=== PATIENT | female | born 1950 | race Caucasian/White ===

== ENCOUNTER → 2023-10-02 15:54 | Outpatient (REF) | payer OTHER, SELFPAY | LOC: RAD 15:54 | PROVIDERS: ATTENDING PHYSICIAN Physician Assistant; FAMILY PHYSICIAN Internal Medicine | DX: R42 Dizziness and giddiness (principal); R26.89 Other abnormalities of gait and mobility; F41.9 Anxiety disorder, unspecified; F10.90 Alcohol use, unspecified, uncomplicated; R41.3 Other amnesia; Z13.220 Encounter for screening for lipoid disorders | CPT/HCPCS: 70450 ==

== ENCOUNTER 2024-03-01 16:23 | Emergency (ER) | payer SELFPAY ==
[2024-03-01 16:27] VITALS: BP 218/111
[2024-03-01 16:44] VITALS: BP 179/81
[2024-03-01 16:53] VITALS: BMI 22.0
[2024-03-01 16:55] LABS: % Basophils 1.3 % (0-2); % Immature Granulocytes 0.5 % (0-0.5); % Lymphocytes 15.5 % (20.5-51.1); % Monocytes 9.8 % (1.7-9.3); % Neutrophils 72.9 % (42.2-75.2); Absolute Basophils 0.1 10^3/uL (0-0.2); Absolute Monocytes 0.6 10^3/uL (0.1-0.6); Absolute Neutrophils 4.5 10^3/uL (1.4-6.5); Hemoglobin 13.7 g/dL (12.0-16.0); Mean Corp Hgb Conc. 36.1 g/dL (33.0-37.0); Mean Corpuscular Hgb 33.6 pg (27.0-31.0); Mean Corpuscular Volume 93.1 fL (81.0-99.0); Mean Platelet Volume 9.5 fL (7.4-10.4); Nucleated Red Blood Cells % 0 %; Platelet Count 222 10^3/uL (130-400); Red Blood Cell Count 4.08 10^6/uL (4.20-5.40); Red Cell Dist. Width 12.2 % (11.5-14.5); White Blood Cell Count 6.2 10^3/uL (4.8-10.8)
[2024-03-01 17:09] LABS: ALT (SGPT) 38 U/L (0-35); AST (SGOT) 51 U/L (14-36); Albumin 5.2 g/dl (3.5-5.0); Alcohol None Detected; Alkaline Phosphatase 82 U/L (38-126); Blood Urea Nitrogen 13 mg/dl (7-17); Calcium 9.8 mg/dl (8.4-10.2); Carbon Dioxide 19 mmol/L (22-30); Chloride 105 mmol/L (98-107); Estimated Creatinine Clearance 43 ml/min; Glucose 128 mg/dl (70-99); Potassium 4.7 mmol/L (3.5-5.1); Sodium 136 mmol/L (135-145); Total Bilirubin 0.7 mg/dl (0.2-1.3); Total Protein 8.1 g/dl (6.3-8.2); eGFR 59.49
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
== END 2024-03-01 19:08 | disposition home or self-care (01) ==
LOC: EMR 16:23
PROVIDERS: EMERGENCY PHYSICIAN Emergency Medicine; FAMILY PHYSICIAN Physician Assistant
DX: R41.3 Other amnesia (principal); V89.2XXA Person injured in unspecified motor-vehicle accident, traffic, initial encounter; Y92.410 Unspecified street and highway as the place of occurrence of the external cause; I38 Endocarditis, valve unspecified; K58.9 Irritable bowel syndrome, unspecified; Z60.2 Problems related to living alone; Z86.79 Personal history of other diseases of the circulatory system
CPT/HCPCS: 99284; 70450; 80053; 82077; 85025

== ENCOUNTER → 2024-05-14 13:48 | Outpatient (REF) | payer MEDICARE, SELFPAY | LOC: PAVMRI 13:48 | PROVIDERS: ATTENDING PHYSICIAN Psychiatry & Neurology Neurology; FAMILY PHYSICIAN Physician Assistant | DX: R41.89 Other symptoms and signs involving cognitive functions and awareness (principal); F10.20 Alcohol dependence, uncomplicated | CPT/HCPCS: 70553; A9575 ==

== ENCOUNTER 2024-05-19 17:23 | Inpatient (IN) | payer MEDICARE, SELFPAY ==
[2024-05-18] VITALS (8 sets, daily range): BP systolic 127–156; BP diastolic 66–83; BMI 19.4
[2024-05-18 16:44] LABS: % Basophils 1.3 % (0-2); % Eosinophils 0.6 % (0-6); % Immature Granulocytes 0.4 % (0-0.5); % Lymphocytes 37.2 % (20.5-51.1); % Monocytes 8.8 % (1.7-9.3); % Neutrophils 51.7 % (42.2-75.2); Absolute Basophils 0.1 10^3/uL (0-0.2); Absolute Lymphocytes 1.7 10^3/uL (1.2-3.4); Absolute Monocytes 0.4 10^3/uL (0.1-0.6); Absolute Neutrophils 2.4 10^3/uL (1.4-6.5); Hematocrit 40.1 % (37.0-47.0); Hemoglobin 14.1 g/dL (12.0-16.0); Mean Corp Hgb Conc. 35.2 g/dL (33.0-37.0); Mean Corpuscular Hgb 34.8 pg (27.0-31.0); Mean Platelet Volume 10.1 fL (7.4-10.4); Nucleated Red Blood Cells % 0 %; Platelet Count 255 10^3/uL (130-400); Red Blood Cell Count 4.05 10^6/uL (4.20-5.40); Red Cell Dist. Width 11.8 % (11.5-14.5); White Blood Cell Count 4.7 10^3/uL (4.8-10.8)
--- NOTE | 2024-05-18 16:52 | ED.GENMED ---
History of Present Illness
General
Chief Complaint: Change in Mental Status
Time Seen by Provider: 05/18/24 16:38
History of Present Illness
History of Present Illness:
73-year-old female with history of hyperlipidemia presents to the emergency department for evaluation of abnormal MRI results. According to patient's daughter she has been having progressive cough changes for the past several months, was sent for
outpatient MRI by her primary care physician and the findings from 4 days ago showed a acute to subacute hemorrhagic infarct in the right parietal lobe. She was directed to the ED by her primary care physician. Per daughter there have been no
acute changes in the past 4 days. No fevers or chills. She denies any chest pain, shortness of breath, nausea, vomiting. No history of prior stroke but did have a subdural hemorrhage due to a fall
Past History
Past History
ED Past Medical History: Valvular disease and Other (IBS, OCs)
ED Past Surgical History: Gynecological
Social History
Tobacco: Non-smoker
Alcohol: Daily
Personal:
Living: with family
Employment: Retired
Review of Systems
Review of Systems
Allergies reviewed?: Yes
All Other Systems: ROS reviewed and negative except as documented in HPI and ROS
Phy Exam
Physical Exam
Physical Exam:
GEN: Well appearing, NAD, WDWN
HEENT: Oral mucosa moist, no scleral icterus, no nasal congestion
Cardiac: Regular rate and rhythm,
Lung: No respiratory distress, no tachypnea
MSK: No gross deformity or injuries
Skin: Good color, no pallor or jaundice, no rashes
Neuro: Alert, oriented only to self, follows commands; CN II-XII grossly intact. BUE strength 5/5 in all patricio, sensation intact and symmetric. BLE strength 5/5 in all patricio, sensation intact and symmetric
Psych: Calm, cooperative
Course
Orders/Labs/Results
Orders:
Orders
05/18/24 16:32
Complete Blood Count/With Diff Urgent
Comprehensive Metabolic Panel Urgent
PT/INR [Prothrombin Time] Urgent
05/18/24 16:51
CT Head W/o Iv Contrast Urgent
Comment:
Reason For Exam: mental status change, recent CVA
05/18/24 16:52
Electrocardiogram (*1) Urgent
Reason for Study: TIA/Stroke
EKG- Treatment ONCE
Urinalysis Reflex To Culture Urgent
05/18/24 20:30
Aspirin Chewable [Low Strength Aspirin] 81 mg PO NOW STA
Clopidogrel Bisulfate [Plavix] 75 mg PO NOW STA
05/18/24 22:51
Admit/Transfer Patient As Directed
Co-Sign Provider:
Level of Care: Observation services
Assign to:: Telemetry
Physician / Group: neo
Diagnosis: cva
Reason for Telemetry: CVA/TIA
Date to Stop Telemetry: 05/21/24
Time to Stop Telemetry: 11:00
Code Status As Directed
Resuscitation Status: Full Code
PRN Pain Medication Management As Directed
May give lesser potent ordered pain med per pt: Yes
preference::
Protocol:: Medication orders for pain may be administered in a
manner that supports deferring to patient preference
when the pt is:
- Requesting an ordered lesser potent pain medication.
Least to most potent pain medications are defined
as: acetaminophen < NSAID < tramadol < opioids
(morphine, oxycodone, hydromorphone).
- Requesting a lesser dose of the same medication IF
ORDERED.
- Requesting a less intrusive route of administration
if both routes are prescribed by the provider (PO <
IV).
05/21/24 11:00
DC Protocol for Telemetry ONCE
Abnormal Lab Results
05/18/24
16:32
WBC 4.7 L 10^3/uL
(4.8-10.8)
RBC 4.05 L 10^6/uL
(4.20-5.40)
MCH 34.8 H pg
(27.0-31.0)
Sodium 147 H mmol/L
(135-145)
Chloride 108 H mmol/L
(98-107)
Glucose 115 H mg/dl
(70-99)
Albumin 5.2 H g/dl
(3.5-5.0)
05/18/24 16:32
05/18/24 16:32
Vital Signs
Initial and Last Documented VS:
Initial Vital Signs
Temp Pulse Resp BP Pulse Ox
98.2 F 86 16 147/83 98
05/18/24 16:21 05/18/24 16:21 05/18/24 16:21 05/18/24 16:21 05/18/24 16:21
Last Documented Vital Signs
Temp Pulse Resp BP Pulse Ox
98.5 F 82 14 142/76 100
05/18/24 21:52 05/18/24 20:45 05/18/24 20:45 05/18/24 20:00 05/18/24 16:59
MDM/Problems Addressed
MDM/Problems Addressed:
I discussed the MRI findings with neurology on-call who request that we initiate dual antiplatelets and admit for further stroke workup as the concern is for potential embolic CVA. Initially we had planned to admit however the patient abruptly
decided against this and requested to go home. I had a lengthy discussion with the patient about further outpatient workup that is necessary and plan for discharge with prescription for dual antiplatelets however after this discussion the patient
then again changed her mind and opted for admission.
*Critical Care Note
Total Time (30-74mins, 75-104mins- exclusive of procedures): Not Applicable
ED Attending Note
-
Portions of this chart may have been created with voice recognition software.� Occasional wrong word or��sound alike� substitutions may have occurred due to the inherent limitations of voice recognition software.
Discharge Plan
Departure
Patient Disposition: Admit
Date of Disposition: 05/18/24
Time of Disposition: 20:33
Presentation/result/management discussed w/ accepting MD/DO: Hospitalist
Patient with high blood pressure during this ER visit?: No
Discharge Problem:
Acute cerebrovascular accident (CVA)
Instructions: Stroke
Prescriptions:
New
clopidogrel [Plavix] 75 mg tablet
75 mg PO DAILY Qty: 20 0RF
No Action
metoprolol succinate 25 mg Tablet Extended Release 24 Hr
25 mg PO DAILY
escitalopram oxalate 5 mg Tablet
5 mg PO DAILY
rosuvastatin tablet
1 tab PO DAILY
Referrals:
Stefanie Laguna PA-C [Family Provider] -
Mary Ellen Villarreal DO [Active] -
Activity Restrictions/Additional Instructions:
You were recommended for admission by our neurologist, however you have declined and requested to be discharged. We are concerned your stroke is 'embolic' meaning a clot that was sent from somewhere else in the body. You should obtain an
echocardiogram (ultrasound of the heart); this can be ordered by your primary doctor or by your neurologist
Call your neurologist office tomorrow for further follow up instructions pertaining to your stroke, as well as the remainder of the findings on your MRI. These findings may reflect chronic brain changes.
Interventions
Interventions:
*Risk Screen - Suicide Last Done: 05/18/24 16:21
*General Assessment Last Done: 05/18/24 16:51
*Neglect/Abuse Screening Last Done: 05/18/24 16:21
ED- Neurological Assessment Last Done: 05/18/24 21:48
ED Swallowing Screen Last Done: 05/18/24 20:54
Discharge Date and Time
Print Language: DIVEHI
[2024-05-18 16:54] LABS: INR 0.98; PT 12.8 Sec (11.4-14.6)
[2024-05-18 16:59] LABS: ALT (SGPT) 29 U/L (0-35); AST (SGOT) 34 U/L (14-36); Albumin 5.2 g/dl (3.5-5.0); Alkaline Phosphatase 63 U/L (38-126); Blood Urea Nitrogen 11 mg/dl (7-17); Calcium 10.1 mg/dl (8.4-10.2); Carbon Dioxide 25 mmol/L (22-30); Chloride 108 mmol/L (98-107); Estimated Creatinine Clearance 40 ml/min; Glucose 115 mg/dl (70-99); Potassium 4.9 mmol/L (3.5-5.1); Sodium 147 mmol/L (135-145); Total Bilirubin 0.2 mg/dl (0.2-1.3); Total Protein 7.7 g/dl (6.3-8.2); eGFR 59.49
[2024-05-18] MEDS: PLAVIX 75 MG PO (20:55)
[2024-05-18] MEDS: LOW STRENGTH ASPIRIN 81 MG PO (20:55)
--- NOTE | 2024-05-18 22:56 | HPS.HSE ---
Family Physician
-
Family Physician: Stefanie Laguna
Chief Complaint
-
abnormal MRI
History of Present Illness
73-year-old female past medical history of cognitive impairment, hypertension, hyperlipidemia, prior subdural hematoma, depression, IBS, presenting with abnormal MRI results. Patient had been having progressive cognitive decline over several years
and saw neurologist who ordered outpatient MRI.
She had outpatient MRI performed by her primary care physician 4 days ago showing acute to subacute hemorrhagic infarct in the right parietal lobe. She was directed to the emergency room.
Patient denies any headache, blurry vision, difficulty speaking or swallowing, any numbness or tingling, focal weakness or balance dysfunction.
Patient is in denial about how much alcohol she drinks. She is not forthcoming about how much she drinks. She denies nausea vomiting or tremors.
Medical History
Past Medical History
Past Medical History: Reports Other (cognitive impairment, hypertension, hyperlipidemia, prior subdural hematoma, depression, IBS)
Past Surgical History: Reports Other (Gynecological)
Social History
Tobacco: Non-smoker
Alcohol: Daily
Drug: None
Family History
Family History: Other (brother with CVA, father with CAD )
Allergies / Home Medications
Allergies reflects when Allergies were last updated in [facility].
Home Medications with original date entered in [facility]
Allergy/Medication List:
Allergies
Allergy/AdvReac Type Severity Reaction Status Date / Time
erythromycin base Allergy 'irritates Verified 05/18/24 16:25
my stomach'
Home Medications
clopidogrel 75 mg tablet (Plavix) 75 mg PO DAILY #20 tabs 05/18/24
escitalopram oxalate 5 mg tablet 5 mg PO DAILY 05/18/24
metoprolol succinate 25 mg tablet,extended release 24 hr 25 mg PO DAILY 05/18/24
rosuvastatin 1 tab PO DAILY 05/18/24
Review of Systems
-
History Source: Patient
A 12 point ROS was completed and negative except as noted: Yes
Constitutional: Reports No Symptoms
EENT: Reports No Symptoms
Respiratory: Reports No Symptoms
Cardiac: Reports No Symptoms
Abdomen/GI: Reports No Symptoms
: Reports No Symptoms
Musculoskeletal: Reports No Symptoms
Skin: Reports No Symptoms
Neurological: Reports No Symptoms
Endocrine: Reports No Symptoms
Hematologic/Lymphatic: Reports No Symptoms
Psych: Reports No Symptoms
Physical Exam
Vital Signs
Vital Signs
Temp Pulse Resp BP Pulse Ox
98.5 F 82 14 142/76 100
05/18/24 21:52 05/18/24 20:45 05/18/24 20:45 05/18/24 20:00 05/18/24 16:59
Physical Exam
General: Well Developed, Well Nourished and No Apparent Distress
HEENT: NormoCephalic, Moist mucous membranes and Atraumatic
Respiratory: Clear
Cardiac: S1/S2 and Regular Rhythm; No Murmur or Rub
GI: Soft, Non Tender, Non Distended and Normal Bowel Sounds; No Organomegaly
Rectal: Deferred by Provider
Musculoskeletal: No Clubbing, No Cyanosis and No Edema
Skin: No Rash
Neuro: Nonfocal/grossly intact
Laboratory Results
-
05/18/24 16:32
05/18/24 16:32
Laboratory Results
PT 12.8 Sec (11.4-14.6) 05/18/24 16:32
INR 0.98 05/18/24 16:32
Total Bilirubin 0.2 mg/dl (0.2-1.3) 05/18/24 16:32
AST 34 U/L (14-36) 05/18/24 16:32
ALT 29 U/L (0-35) 05/18/24 16:32
Alkaline Phosphatase 63 U/L (38-126) 05/18/24 16:32
Data Reviewed
-
Lab Data: Labs Reviewed by me
Old Records: Reviewed
Impression/Plan
-
IMPRESSION:
PLAN:
# Hemorrhagic infarct subacute versus acute of medial postcentral gyrus of right parietal lobe likely secondary to cerebral amyloid angiopathy
-no neurological deficits
-CT head today shows no acute intracranial abnormalities
-MRI shows hemorrhagic infarct focus in the medial postcentral gyrus the right parietal lobe, as well as numerous scattered foci of decreased T2 gradient echo signal likely representing amyloid angiopathy
-Aspirin Plavix given in ER, hold further for now
-Maintain systolic blood pressure under 140 systolic
-Neurology consulted
#Hypernatremia
-Sodium 147
-1/2 Normal Saline at 60 cc/hr
Prior subdural hematoma
History of cognitive impairment
Alcohol use disorder
-No signs of withdrawal currently
-Alcohol withdrawal protocol
Essential hypertension
-Continue metoprolol
Hyperlipidemia
-Continue statin
Depression
-Continue Lexapro
IBS
Full code
DVT prophylaxis�SCDs
Regular diet
[2024-05-19] VITALS (10 sets, daily range): BP systolic 140–160; BP diastolic 71–89; PULSE 79
[2024-05-19] MEDS: 0.45%NACL 1000 IV (01:14)
[2024-05-19 03:26] LABS: Urine Albumin Negative (Neg - Trace); Urine Bilirubin Negative (Negative); Urine Character Clear (Clear); Urine Color Yellow; Urine Glucose Negative (Negative); Urine Ketone Negative (Negative); Urine Leukocyte Trace (Negative); Urine Nitrite Negative (Negative); Urine Occult Blood Negative (Negative); Urine Urobilinogen Negative (Neg - 1+)
[2024-05-19 03:45] LABS: Urine Mucus Few
[2024-05-19 03:47] LABS: Urine Bacteria Few (Negative); Urine Red Blood Cell 0-2 /HPF (0-2)
[2024-05-19 06:03] LABS: % Basophils 1.1 % (0-2); % Eosinophils 0.9 % (0-6); % Immature Granulocytes 0.4 % (0-0.5); % Lymphocytes 19.6 % (20.5-51.1); % Monocytes 12.1 % (1.7-9.3); % Neutrophils 65.9 % (42.2-75.2); Absolute Basophils 0.1 10^3/uL (0-0.2); Absolute Eosinophils 0.1 10^3/uL (0-0.7); Absolute Lymphocytes 1.1 10^3/uL (1.2-3.4); Absolute Monocytes 0.7 10^3/uL (0.1-0.6); Absolute Neutrophils 3.6 10^3/uL (1.4-6.5); Hematocrit 34.5 % (37.0-47.0); Hemoglobin 12.1 g/dL (12.0-16.0); Mean Corp Hgb Conc. 35.1 g/dL (33.0-37.0); Mean Corpuscular Hgb 33.2 pg (27.0-31.0); Mean Corpuscular Volume 94.5 fL (81.0-99.0); Mean Platelet Volume 10.2 fL (7.4-10.4); Nucleated Red Blood Cells % 0 %; Platelet Count 237 10^3/uL (130-400); Red Blood Cell Count 3.65 10^6/uL (4.20-5.40); Red Cell Dist. Width 11.7 % (11.5-14.5); White Blood Cell Count 5.5 10^3/uL (4.8-10.8)
[2024-05-19 06:26] LABS: Blood Urea Nitrogen 18 mg/dl (7-17); Calcium 9.5 mg/dl (8.4-10.2); Carbon Dioxide 24 mmol/L (22-30); Chloride 103 mmol/L (98-107); Estimated Creatinine Clearance 45 ml/min; Glucose 123 mg/dl (70-99); HDL Cholesterol 85 mg/dl; LDL Cholesterol, Calculated 124 mg/dl; Potassium 4.1 mmol/L (3.5-5.1); Sodium 139 mmol/L (135-145); Total Cholesterol 238 mg/dl (50-199); Triglyceride 146 mg/dl (10-149); Very Low Density Lipoprotein 29 mg/dl (0-30); eGFR > 60.00
[2024-05-19] MEDS: TOPROL XL 25 MG PO (08:03)
[2024-05-19] MEDS: FOLVITE 1 MG PO (08:03)
[2024-05-19] MEDS: LEXAPRO 5 MG PO (08:04)
[2024-05-19] MEDS: VITAMIN B1 100 MG PO (08:04)
--- NOTE | 2024-05-19 10:24 | PTOTSP ---
ST Acute Care Evaluations:
Background information:
- Pt lives at home alone in a house with her dog and cat.
- Pt is independent with: driving, grocery shopping, cooking, cleaning, finances, and daily medication management.
- Pt occasionally asks for help for yard work assistance.
- Pt has one daughter who lives fairly close by.
- Pt does not perceive any difficulties in her cognitive function but has noted that her brother and daughter have occasionally made comments in passing about her memory.
Clinical Observations: Pt does not know why she has been admitted to the hospital. Pt now recognizes that she came to the hospital with two mismatched shoes. Pt reports she 'feels a little foggy this morning' and 'I've been in another world.' Pt's
speech was clear and fully intelligible. Pt expressed herself and her thoughts in fully, grammatically correct sentences that were easy to follow. Pt followed directions for evaluation without issue. Pt appropriately asked clarifying questions when
necessary. No apparent visual or auditory deficits notes.
Pt currently presents with speech, receptive language, and expressive language skills that are generally with functional limits. Pt exhibits moderate cognitive linguistic deficits (MOCA = 17/30) in the areas of orientation (i.e., time), attention,
executive functioning, and short term memory. Pt would benefit from skilled cognitive linguistic tx at this time to address these aforementioned deficits.
Pt currently presents with oral, pharyngeal, and esophageal parameters that are WFL for safe PO intake of all solids and liquids. No skilled dysphagia services warranted at this time.
Recommendations:
- Continue with regular solids, thin liquids, meds as tolerated.
- General aspiration precautions.
- No skilled dysphagia services warranted.
- LEAD PROGRAMMER to continue to follow while admitted for cognitive linguistic tx.
- LEAD PROGRAMMER services at time of d/c for continued cognitive linguistic tx at the home health level of care.
- Consider neuropsych evaluation as an OP.
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
--- NOTE | 2024-05-19 12:44 | W.PN.HOSP.TC ---
Today's Communication/Plan
-
CTA head/neck
TTE
PT/OT
Neuro recs
Assessment / Plan
Assessment / Plan
# Hemorrhagic infarct subacute versus acute of medial postcentral gyrus of right parietal lobe likely secondary to cerebral amyloid angiopathy
-no neurological deficits
-CT head shows no acute intracranial abnormalities
-MRI done as OP.
-CTA head and neck ordered
-TTE ordered.
-Aspirin Plavix given in ER, hold further for now
-Maintain systolic blood pressure under 140
-Neurology consulted
#Hypernatremia
-Sodium wnl. resolved. dc IVF.
Prior subdural hematoma
History of cognitive impairment
Alcohol use disorder
-No signs of withdrawal currently
-Alcohol withdrawal protocol
Essential hypertension
-Continue metoprolol
Hyperlipidemia
-Continue statin
Depression
-Continue Lexapro
IBS
Full code
DVT prophylaxis�SCDs
PT/OT ordered
Anticipated Discharge: Within 24 hours
Subjective/Interval History
-
Date of Service: May 19, 2024
Sitting in chair eating breakfast
Denies any numbing tingling or lightheaded and dizziness
Moving all 4 extremities
Objective Data
-
Labs:
Laboratory Results
05/19/24
05:27
WBC 5.5
Hgb 12.1
Hct 34.5 L
Plt Count 237
Sodium 139 D
Potassium 4.1
Chloride 103
Carbon Dioxide 24
BUN 18 H
Creatinine 0.9
Glucose 123 H
Calcium 9.5
Vital Signs:
Vital Signs
Temp Pulse Resp BP Pulse Ox
98.8 F 81 15 160/76 98
05/19/24 11:16 05/19/24 11:16 05/19/24 11:16 05/19/24 11:16 05/19/24 11:16
Physical Exam
-
General: Well Developed and Well Nourished
HEENT: Normocephalic, Atraumatic and Moist Mucous Membranes
Respiratory: Clear to Auscultation; Negative Wheezes or Rhonchi
Cardiac: Regular Rhythm and S1/S2; Negative Murmur
GI: Soft, Nontender, Nondistended and Normal Bowel Sounds
Musculoskeletal: No Clubbing, No Cyanosis and No Edema
Neuro: Awake, Alert, Oriented, AO x 3, No Motor Deficits and Nonfocal/Grossly Intact
Psych: Calm
--- NOTE | 2024-05-19 14:32 | W.PN.ADMCERT ---
Inpatient Certification Note
-
Reason for Hospitalization: cva. concern for emboli and undergoing ongoing work up
Expected length of stay greater than two midnights?: Yes
I certify the patient meets the requirements for IP care: Yes
Post Hospital Care:
Post-hospital care is identified in collaboration with the attending/treatment team as well as the patient�s individual needs.
Post-hospital care determinations will be documented in the Case Management assessment and in subsequent notes.
[2024-05-19 14:34] LABS: TSH Reflex To Free T4 1.16 uIU/ml (0.47-4.68)
[2024-05-19 14:53] LABS: Vitamin B12 294 pg/ml (239-931)
--- NOTE | 2024-05-19 15:15 | SUR.OPER ---
Received pt from ED Holds. Pt awake, alert and oriented x3. Pt very forgetful, asking same questions, confused at surroundings and purpose of being in the hospital, pleasant and easily reoriented. Bed alarm placed for safety. Pt NIH: 1 for decreased
sensation in left face and leg. Primary MD and Neuro made aware. Pt VSS 97% on RA. Low grade temp on admission that normalized. Pt oriented to room, call ayala within reach, plan of care continues.
--- NOTE | 2024-05-19 15:16 | W.PN.UPDATE ---
Update Note
Progress Note Update
Cardiology consulted for an implantable loop recorder (ILR). Will begin evaluation with a 2 week Rhythm Star monitor and pending results patient can be considered for an ILR. Rhythm Star monitor should be placed on day of discharge. Please contact
cardiology on-call for the [facility] when patient is being d/c'd so that monitor can be placed.
[2024-05-19] MEDS: CYANOCOBALAMIN 1000 MCG IM (17:20)
[2024-05-19] MEDS: CRESTOR 20 MG PO (17:20)
--- NOTE | 2024-05-19 17:59 | CM ---
Addendum entered by Olive Crane 05/19/24 18:14:
CM consult placed for [facility]. CM explained what [facility] is and what they offer. Patient declined stating she does have any substance abuse issues. She shared she only has a beer 'every once in a while'.
Original Note:
CM reviewed chart. CM introduced self and role. Patient lives at home with her pets. She has an active PCP (EDA MARIE) and pharmacy ([facility]). She lives in a multi-level home and has 3 steps to enter into the home. She drives. She is independent. She
owns no DME. She is retired. 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 [facility] letter explained by CM and patient signed. Copy given to patient. No +SDOHs.
[2024-05-20] MEDS: TYLENOL 650 MG PO (00:35)
[2024-05-20 03:32] VITALS: BP 160/96
[2024-05-20 07:34] LABS: Glycohemoglobin (HgbA1c) 5.6 % (4.0-5.6)
[2024-05-20 07:45] VITALS: BP 129/80
[2024-05-20] MEDS: TOPROL XL 25 MG PO (08:05)
[2024-05-20] MEDS: LEXAPRO 5 MG PO (08:06)
[2024-05-20] MEDS: FOLVITE 1 MG PO (08:06)
[2024-05-20] MEDS: VITAMIN B1 100 MG PO (08:06)
[2024-05-20] MEDS: ASPIR LOW (ENTERIC COATED) 81 MG PO (08:06)
[2024-05-20] MEDS: PLAVIX 75 MG PO (08:07)
[2024-05-20 08:42] VITALS: BP 129/80
[2024-05-20] MEDS: CYANOCOBALAMIN 1000 MCG IM (10:24)
[2024-05-20 10:27] VITALS: BP 162/75; PULSE 76
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
--- NOTE | 2024-05-20 10:59 | W.PN.HOSP.TC ---
Today's Communication/Plan
-
dc home
Assessment / Plan
Assessment / Plan
# Hemorrhagic infarct subacute versus acute of medial postcentral gyrus of right parietal lobe likely secondary to cerebral amyloid angiopathy
-no neurological deficits
-CT head shows no acute intracranial abnormalities
-MRI done as OP.
-CTA head and neck ordered-no severe occlusion. 5 mm aneurysm off the anterior communicating artery-recs to f/u with neurosurgery.
-TTE noted
-Aspirin Plavix for 21 days total then asa only
-Cards to place alarm security or surveillance monitor.
-Maintain systolic blood pressure under 140
-No events on telemetry noted. a1c 5.6. LDL 124.
-Neurology consulted
#Hypernatremia
-Sodium wnl. resolved. dc IVF.
Prior subdural hematoma
History of cognitive impairment
Alcohol use disorder
-No signs of withdrawal currently
-Alcohol withdrawal protocol
Essential hypertension
-Continue metoprolol
Hyperlipidemia
-Continue statin
Depression
-Continue Lexapro
IBS
Full code
DVT prophylaxis�SCDs
PT/OT -home vn.
More than 30 minutes spent in discharge including
Final examination of the patient
Summarizing hospital stay
Instructions for continuing care to all relevant caregivers
Preparation of discharge records, prescriptions, and referral forms
Total time spent (in minutes): 52
Anticipated Discharge: Today
Subjective/Interval History
-
Date of Service: May 20, 2024
feeling better
no weakness/numbing/tingling sensation. Denies lightheadedness or dizziness
Objective Data
-
Vital Signs:
Vital Signs
Temp Pulse Resp BP Pulse Ox
98.2 F 74 22 129/80 100
05/20/24 07:45 05/20/24 07:45 05/20/24 07:45 05/20/24 07:45 05/20/24 07:45
Physical Exam
-
General: Well Developed and Well Nourished
HEENT: Normocephalic, Atraumatic and Moist Mucous Membranes
Respiratory: Clear to Auscultation; Negative Wheezes or Rhonchi
Cardiac: Regular Rhythm and S1/S2; Negative Murmur
GI: Soft, Nontender, Nondistended and Normal Bowel Sounds
Musculoskeletal: No Clubbing, No Cyanosis and No Edema
Neuro: Awake, Alert, Oriented, AO x 3, No Motor Deficits and Nonfocal/Grossly Intact
Psych: Calm
--- NOTE | 2024-05-20 11:07 | W.DCSUMMARY ---
Discharge Summary
Discharge Data
Date of Admission: 05/19/24
Date of Discharge: 05/20/24
-
Pending Results: No
Hospital Course
73-year-old female past medical history of subdural hematoma, suspected cognitive impairment, alcohol use disorder, hypertension, hyperlipidemia, depression, IBS who is presenting with abnormal MRI. Patient had MRI done as outpatient which showed
acute to subacute hemorrhagic infarct in the right parietal lobe. Patient was eval by neurology. Patient underwent CT angio of the head and neck with 5 mm aneurysm. Patient was recommend to follow-up with neurosurgery. Neurology was concerned
for embolic phenomenon causing stroke and requested monitoring tech. Cardiology consulted and placed monitoring tech on discharge. Patient will take aspirin and Plavix together for 20 days additional on discharge and then take aspirin
indefinitely. Patient was also found to have low vitamin B12 and was started on supplementation. Neurology also recommended starting patient on thiamine. Patient was eval by physical Occupational Therapy. Echocardiogram was performed. No events
were noted on telemetry. Patient discharged home with VN.
Discharge Plan
-
Patient Disposition: Home with Home Care
Discharge Diagnosis/Procedures: CVA
Condition: Fair
Diet: Low Cholesterol
Activity: With assistance and As tolerated
Driving Restrictions: As prior to admission
Other Services: VN
Referrals:
Stefanie Laugna PA-C [Family Provider] - in less than 1 week
Ignacio Wilkins MD [Active] - (f/u for heart monitor )
Chelsea Jennings MD [Active] - in one to two weeks
Haven Elizalde MD [Active] - (5 mm aneurysm off the anterior communicating artery-f/u)
Additional Discharge Medication Instructions: Pt being discharged with 2 week monitoring tech, which will be placed prior to discharge by Dr Wilkins's office.
Prescriptions:
New
clopidogrel [Plavix] 75 mg tablet
75 mg PO DAILY Qty: 20 0RF
aspirin 81 mg Tablet,Delayed Release (Dr/Ec)
81 mg PO DAILY 30 Days Qty: 30 0RF
rosuvastatin 20 mg Tablet
20 mg PO QPM 30 Days Qty: 30 0RF
cyanocobalamin (vitamin B-12) 1,000 mcg capsule
1,000 mcg PO DAILY 30 Days Qty: 30 0RF
thiamine HCl (vitamin B1) 100 mg tablet
100 mg PO DAILY 30 Days Qty: 30 0RF
Continued
metoprolol succinate 25 mg Tablet Extended Release 24 Hr
25 mg PO DAILY
escitalopram oxalate 5 mg Tablet
5 mg PO DAILY
Discontinued
rosuvastatin tablet
1 tab PO DAILY
Discharge Orders:
Discharge Patient (As Directed); Ordered 05/20/24
Ordered By: Allen Arellano
Discharge Date and Time
Print Language: KAZAKH
[2024-05-20 11:16] VITALS: BP 144/78
--- NOTE | 2024-05-20 14:45 | PTCARENOTE ---
Discharge instructions reviewed at length with patient. She is very forgetful so brother at bedside and reviewed with him, things rewritten for patient. Brother reassured that he will organize pts meds in pill box for her. Went over heart monitor
instructions, wrote things out for patient.
--- NOTE | 2024-05-20 16:07 | CM ---
CM met briefly with Nehal prior to discharge. Nehal lives alone and is typically (I) amb and adls; drives in the community. PT/OT recommended VN which was offered and declined. Pt was discharged to home with family. Will return home to
with first floor set up.
Plan: Discharge to home with no services.
== END 2024-05-20 16:07 | disposition home or self-care (01) | DRG 65 ==
LOC: 4 EAST ACU 17:23
PROVIDERS: Physician Assistant; ADMITTING PHYSICIAN Hospitalist; ATTENDING PHYSICIAN Hospitalist; CONSULT PHYSICIAN Psychiatry & Neurology Neurology; EMERGENCY PHYSICIAN Student in an Organized Health Care Education/Training Program; FAMILY PHYSICIAN Physician Assistant
DX: I63.411 Cerebral infarction due to embolism of right middle cerebral artery (principal); E85.4 Organ-limited amyloidosis; E87.0 Hyperosmolality and hypernatremia; G93.40 Encephalopathy, unspecified; E78.5 Hyperlipidemia, unspecified; K58.8 Other irritable bowel syndrome; I10 Essential (primary) hypertension; G31.9 Degenerative disease of nervous system, unspecified; F41.1 Generalized anxiety disorder; F32.A Depression, unspecified; F10.10 Alcohol abuse, uncomplicated; E74.39 Other disorders of intestinal carbohydrate absorption; I68.0 Cerebral amyloid angiopathy; Z82.3 Family history of stroke; Z82.49 Family history of ischemic heart disease and other diseases of the circulatory system; Z88.1 Allergy status to other antibiotic agents; Z87.820 Personal history of traumatic brain injury; Z79.82 Long term (current) use of aspirin
CPT/HCPCS: 70450; 70496; 70498; 80048; 80053; 80061; 81003; 81015; 82607; 83036; 84443; 85025; 85610; 92523; 92610; 93005; 93306; 97116; 97129; 97162; 97167; 97535; 99285; Q9967

== ENCOUNTER → 2024-06-11 11:52 | Outpatient (REF) | payer MEDICARE, SELFPAY | LOC: REG 11:52 | PROVIDERS: ATTENDING PHYSICIAN Internal Medicine; FAMILY PHYSICIAN Physician Assistant | DX: Z01.818 Encounter for other preprocedural examination (principal); I67.1 Cerebral aneurysm, nonruptured; R79.1 Abnormal coagulation profile | CPT/HCPCS: 93005 ==

== ENCOUNTER 2024-07-17 09:16 | Day surgery (SDC) | payer MEDICARE, SELFPAY ==
--- NOTE | 2024-07-17 12:15 | ITS.CL.IMPLP ---
Counseling Services Manager - Implant Loop
Implant Loop
Procedure Report:
Date of Procedure: July 17, 2024.
Procedure: Insertable Loop Recorder Implant.
Indication: Embolic stroke of unknown source.
Performing physician: Ayaan De La Cruz MD, [facility].
Implant: [employer]onic; Reveal LINQII; Model# [id number]; Serial# [id number].
Technique: The patient was prepped and draped in the usual fashion. A time-out was performed. No intravenous sedation was administered. Local anesthetic was applied to the left pre-pectoral subcutaneous tissue. Using the insertion kit an incision
was made left of the midline in the fourth intercostal space and the device was implanted subcutaneously and directed towards the nipple. Hemostasis was excellent. The skin was closed with steri-strips. The estimated blood loss was less than 1 ml.
There were no complications. No fluoroscopy. R waves measured 0.6 mV and P waves were visible.
Final Programming: Detections: Afib, tachy at 160 bpm, margo at 30 bpm, pause at 3 sec.
Conclusion: Uncomplicated insertable loop implant.
Recommendation: Routine post-insertable loop care. The device is MRI conditional without a waiting period and up to 3 Awa.
cc: Evin Pizano MD, PhD; Mary Ellen Villarreal DO, and Stefanie Laguna PA-C.
== END 2024-07-17 11:58 | disposition home or self-care (01) ==
LOC: CATH 09:16
PROVIDERS: ATTENDING PHYSICIAN Internal Medicine Cardiovascular Disease; FAMILY PHYSICIAN Physician Assistant; OTHER PHYSICIAN Student in an Organized Health Care Education/Training Program
DX: Z09 Encounter for follow-up examination after completed treatment for conditions other than malignant neoplasm (principal); Z86.73 Personal history of transient ischemic attack (TIA), and cerebral infarction without residual deficits; Z79.82 Long term (current) use of aspirin; Z79.02 Long term (current) use of antithrombotics/antiplatelets; Z79.899 Other long term (current) drug therapy
CPT/HCPCS: 33285; C1764

== ENCOUNTER 2024-08-29 14:51 | Emergency (ER) | payer MEDICARE, OTHER, SELFPAY ==
[2024-08-29 14:55] VITALS: BP 165/101
[2024-08-29 15:17] LABS: % Basophils 0.8 % (0-2); % Immature Granulocytes 0.4 % (0-0.5); % Lymphocytes 14.5 % (20.5-51.1); % Monocytes 8.8 % (1.7-9.3); % Neutrophils 75.5 % (42.2-75.2); Absolute Basophils 0.1 10^3/uL (0-0.2); Absolute Lymphocytes 1.1 10^3/uL (1.2-3.4); Absolute Monocytes 0.7 10^3/uL (0.1-0.6); Absolute Neutrophils 5.6 10^3/uL (1.4-6.5); Hematocrit 37.5 % (37.0-47.0); Hemoglobin 13.1 g/dL (12.0-16.0); Mean Corp Hgb Conc. 34.9 g/dL (33.0-37.0); Mean Corpuscular Hgb 32.3 pg (27.0-31.0); Mean Corpuscular Volume 92.6 fL (81.0-99.0); Mean Platelet Volume 10.4 fL (7.4-10.4); Nucleated Red Blood Cells % 0 %; Platelet Count 215 10^3/uL (130-400); Red Blood Cell Count 4.05 10^6/uL (4.20-5.40); Red Cell Dist. Width 12.7 % (11.5-14.5); White Blood Cell Count 7.5 10^3/uL (4.8-10.8)
[2024-08-29 15:40] LABS: Alcohol None Detected
[2024-08-29 15:42] LABS: ALT (SGPT) 36 U/L (0-35); AST (SGOT) 47 U/L (14-36); Albumin 5.4 g/dl (3.5-5.0); Alkaline Phosphatase 69 U/L (38-126); Blood Urea Nitrogen 15 mg/dl (7-17); Calcium 10.2 mg/dl (8.4-10.2); Carbon Dioxide 27 mmol/L (22-30); Chloride 95 mmol/L (98-107); Glucose 127 mg/dl (70-99); Lipase 65 U/L (23-300); Potassium 5.1 mmol/L (3.5-5.1); Sodium 137 mmol/L (135-145); Total Bilirubin 1.5 mg/dl (0.2-1.3); Total Protein 8.4 g/dl (6.3-8.2); eGFR > 60.00
--- NOTE | 2024-08-29 17:58 | ED.GENMED ---
History of Present Illness
General
Chief Complaint: Abdominal Symptoms
Source: patient and family
Time Seen by Provider: 08/29/24 17:20
History of Present Illness
History of Present Illness:
This patient is a 74-year-old female presents emergency department because her daughter was concerned about her last night. She was noted to have 'shakes' which patient describes as chills associated with vomiting x 1. This morning, she was noted
to still have chills associated with nausea but no vomiting. Patient denies other symptoms such as fever, chest pain, shortness of breath, abdominal pain, back pain, headache, dizziness, swelling, or other complaints. Daughter expresses great
concern about patient's consumption of alcohol. She wondered if her symptoms last night were related to withdrawal. She states that mom drank approximately 8 bottles of wine within the last week. Patient states she has not had a drink in at least
a few days. Daughter also states that patient is typically forgetful and has memory loss at baseline related to her aneurysm.
Past History
Past History
ED Past Medical History: HTN, Hypercholesterolemia and Other (Brain aneurysm)
ED Past Surgical History: Gynecological and Other (Brain aneurysm)
Social History
Tobacco: Non-smoker
Alcohol: Daily
Drug: None
Personal:
Living: alone
Employment: Retired
Phy Exam
Physical Exam
Physical Exam:
GENERAL: Alert , in no apparent distress, thin
EYE: pupils equal and reactive
NECK: Supple, no significant adenopathy.
ENT: o/p clr, mmm.
CARDIAC: Regular rate and rhythm .
LUNGS: Clear breath sounds bilaterally, no acute respiratory distress, no wheezes/rales/rhonchi
ABDOMEN: Soft, without focal tenderness, no r/g, no cvat
NEUROLOGICAL: Alert and oriented, no focal neuro deficits
SKIN: Warm and dry, skin intact.
MUSCULOSKELETAL: No edema, well perfused.
PSYCH: Normal and appropriate interaction.
Scores
Withdrawal Assessment of Alcohol
Withdrawal Assessment Completed?: Yes
Nausea and Vomiting: No nausea and no vomiting
Tactile Disturbances: None
Tremor: No tremor
Auditory Disturbances: Not present
Paroxysmal Sweats: No sweat visible
Visual Disturbances: Not present
Anxiety: No anxiety, at ease
Headache, Fullness in Head: Not present
Agitation: Normal activity
Orientation and clouding of sensorium: Oriented and can do serial additions
Total CIWA Score: 0
Alcohol Withdrawal Medication Recommendation: Equal to MSAS Score 0-4. Monitor & re-assess q2hrs, NO MEDICATION NEEDED
Course
Orders/Labs/Results
Orders:
Orders
08/29/24 15:06
Alcohol Urgent
Complete Blood Count/With Diff Urgent
Comprehensive Metabolic Panel Urgent
Lipase Urgent
Abnormal Lab Results
08/29/24
15:06
RBC 4.05 L 10^6/uL
(4.20-5.40)
MCH 32.3 H pg
(27.0-31.0)
Absolute Lymphs (auto) 1.1 L 10^3/uL
(1.2-3.4)
Absolute Monos (auto) 0.7 H 10^3/uL
(0.1-0.6)
Neutrophils % 75.5 H %
(42.2-75.2)
Lymphocytes % 14.5 L %
(20.5-51.1)
Chloride 95 L mmol/L
(98-107)
Glucose 127 H mg/dl
(70-99)
Total Bilirubin 1.5 H mg/dl
(0.2-1.3)
AST 47 H U/L
(14-36)
ALT 36 H U/L
(0-35)
Total Protein 8.4 H g/dl
(6.3-8.2)
Albumin 5.4 H g/dl
(3.5-5.0)
08/29/24 15:06
08/29/24 15:06
Vital Signs
Initial and Last Documented VS:
Initial Vital Signs
Temp Pulse Resp BP Pulse Ox
98.9 F 111 16 165/101 100
08/29/24 14:55 08/29/24 14:55 08/29/24 14:55 08/29/24 14:55 08/29/24 14:55
Last Documented Vital Signs
Temp Pulse Resp BP Pulse Ox
98.3 F 104 19 163/68 100
08/29/24 18:00 08/29/24 19:15 08/29/24 19:15 08/29/24 19:00 08/29/24 14:55
*Critical Care Note
Total Time (30-74mins, 75-104mins- exclusive of procedures): Not Applicable
Update Note
Update Note:
Patient presents to the Emergency Department with __chills/shakes, n/v
Number and Complexity of Problems Addressed at the Encounter
� Chronic conditions affecting care:
� Acute Exacerbation and/or Progression of Chronic Illness:
� Differential Diagnosis includes:but not limited to etoh withdrawal, norovirus, gastritis, etc etc.
Amount and/or Complexity of Data to be Reviewed and Analyzed
� I performed an independent evaluation of and my interpretation is:
EKG:
CT:
Xrays:
Laboratory Studies:generally unremarkable
Other:
� Review of other/old records reveals:
� Clinical information was obtained by an independent historian:daughter at bedside
� Prescriptions/Medications Considered but not given:
� Further testing considered but not performed:
Risk of Complications and/or Morbidity or Mortality of Patient Management
� Social determinants of health affecting care:
� Discussion with other providers (PCP, Hospitalists, Consultants, etc):
� Escalation of care including admission/observation vs risk of discharge considered:7:24 PM patient has eaten a meal here, feels well, would like to go home. Very informed and supportive daughter at bedside. Long discussion
with them regarding next steps. Patient is not interested in inpatient recovery tonight. She did speak with me cares however and they have an appoint with [facility] on Saturday. In the interim she is committed to abstaining from all alcohol.
She is concerned about undergoing withdrawal. She is not in active withdrawal at this time but it certainly is possible given her history of regular alcohol intake. Discussed with both of them the risks and benefits concerning medications for
this, particularly of sedation, dependency, etc. The daughter will closely monitor patient as well as her intake of this medication for withdrawal.
ED Attending Note
-
Portions of this chart may have been created with voice recognition software.� Occasional wrong word or��sound alike� substitutions may have occurred due to the inherent limitations of voice recognition software.
Discharge Plan
Departure
Patient Disposition: Home (Routine Discharge)
Date of Disposition: 08/29/24
Time of Disposition: 19:26
Patient with high blood pressure during this ER visit?: Yes
Condition: Fair
Discharge Problem:
Alcohol abuse
Instructions: Alcohol use disorder - Discharge instructions, BLOOD PRESSURE
Prescriptions:
New
lorazepam 2 mg tablet
2 - 4 mg PO Q4HPRN PRN (Reason: alcohol withdrawal) Qty: 11 0RF
Rx Instructions:
TAKE 2-4MG EVERY 4 HOURS FOR 3-5 DAYS
No Action
metoprolol succinate 25 mg Tablet Extended Release 24 Hr
25 mg PO DAILY
escitalopram oxalate 5 mg Tablet
5 mg PO DAILY
aspirin 81 mg Tablet,Delayed Release (Dr/Ec)
81 mg PO DAILY 30 Days Qty: 30 0RF
rosuvastatin 20 mg Tablet
20 mg PO QPM 30 Days Qty: 30 0RF
cyanocobalamin (vitamin B-12) 1,000 mcg capsule
1,000 mcg PO DAILY 30 Days Qty: 30 0RF
thiamine HCl (vitamin B1) 100 mg tablet
100 mg PO DAILY 30 Days Qty: 30 0RF
Referrals:
Stefanie Laguna PA-C [Family Provider] - Follow up in 2-3 days
Activity Restrictions/Additional Instructions:
IF YOU DEVELOP DIZZINESS, CHEST PAIN, SHORTNESS OF BREATH, VOMITING, ABDOMINAL PAIN, CONFUSION, SHAKINESS, OR OTHER WORRISOME SIGNS, PLEASE RETURN TO THE ER IMMEDIATELY.
Interventions
Interventions:
*Risk Screen - Suicide Last Done: 08/29/24 14:55
*General Assessment Last Done: 08/29/24 18:02
*Neglect/Abuse Screening Last Done: 08/29/24 14:55
ED- Fall Risk Assessment Last Done: 08/29/24 19:37
*ED COVID-19 Vaccine History Last Done: 08/29/24 18:02
*Nursing Disposition Last Done: 08/29/24 19:37
[facility] Assessment Last Done: 08/29/24 18:05
Discharge Date and Time
Discharge Date/Time: 08/29/24 19:38
Print Language: POLISH
[2024-08-29 18:04] VITALS: BMI 20.4
[2024-08-29 18:05] VITALS: BP 151/75
[2024-08-29 19:00] VITALS: BP 163/68
== END 2024-08-29 19:38 | disposition home or self-care (01) ==
LOC: EMR 14:51
PROVIDERS: Student in an Organized Health Care Education/Training Program; EMERGENCY PHYSICIAN Emergency Medicine; FAMILY PHYSICIAN Physician Assistant
DX: F10.10 Alcohol abuse, uncomplicated (principal); E78.00 Pure hypercholesterolemia, unspecified; I10 Essential (primary) hypertension; Z86.79 Personal history of other diseases of the circulatory system
CPT/HCPCS: 99283; 80053; 82077; 83690; 85025

== ENCOUNTER → 2024-10-26 15:17 | Outpatient (REF) | payer MEDICARE, OTHER, SELFPAY | LOC: RAD 15:17 | PROVIDERS: ATTENDING PHYSICIAN Physician Assistant | DX: M25.512 Pain in left shoulder (principal); R07.81 Pleurodynia | CPT/HCPCS: 71101; 73030 ==

== ENCOUNTER → 2025-03-07 13:02 | Outpatient (REF) | payer MEDICARE, OTHER, SELFPAY | LOC: PAVMRI 13:02 | PROVIDERS: ATTENDING PHYSICIAN Neurological Surgery; FAMILY PHYSICIAN Physician Assistant | DX: I67.1 Cerebral aneurysm, nonruptured (principal) | CPT/HCPCS: 70544 ==

== ENCOUNTER → 2025-04-19 14:16 | Outpatient (REF) | payer MEDICARE, OTHER, SELFPAY ==
[2025-04-19 16:08] LABS: Hematocrit 38.7 % (37.0-47.0); Hemoglobin 12.9 g/dL (12.0-16.0); Mean Corp Hgb Conc. 33.3 g/dL (33.0-37.0); Mean Corpuscular Volume 91.9 fL (81.0-99.0); Nucleated Red Blood Cells % 0 %; Platelet Count 234 10^3/uL (130-400); Red Cell Dist. Width 12.6 % (11.5-14.5)
[2025-04-19 16:18] LABS: INR 0.97; PT 13.2 Sec (11.4-14.6)
[2025-04-19 16:19] LABS: APTT 24.7 Sec (23.4-35.0)
[2025-04-19 16:34] LABS: Blood Urea Nitrogen 17 mg/dl (7-17); Calcium 10.3 mg/dl (8.4-10.2); Carbon Dioxide 31 mmol/L (22-30); Chloride 101 mmol/L (98-107); Glucose 117 mg/dl (70-99); Potassium 4.3 mmol/L (3.5-5.1); Sodium 138 mmol/L (135-145); eGFR 52.73
== END ==
LOC: RCS 14:16
PROVIDERS: ATTENDING PHYSICIAN Internal Medicine; FAMILY PHYSICIAN Physician Assistant
DX: Z01.818 Encounter for other preprocedural examination (principal); M79.609 Pain in unspecified limb
CPT/HCPCS: 36415; 80048; 85025; 85610; 85730; 93005